=== PATIENT | male | born 2000 | race Caucasian/White ===

== ENCOUNTER 2022-03-26 10:59 | Emergency (ER) | payer OTHER, SELFPAY ==
[2022-03-26 11:07] VITALS: BP 129/75; PULSE 75; RESP 16; TEMP 37.4; O2SAT 99
--- NOTE | 2022-03-26 11:18 | ED.URI ---
HPI - URI/Sore Throat General Chief Complaint: Upper Respiratory Infection Stated Complaint: sore throat, congestion, chest tightness Time Seen by Provider: 03/26/22 11:20 Source: patient Mode of arrival: ambulatory Limitations: no limitations History of Present Illness HPI Narrative: Ran is a 21-year-old male patient presenting to clinic today with complaints of sore throat, nasal congestion, and chest tightness. He reports that his symptoms started approximately 5 days ago. He denies any fever or chills. MD elicited complaint: sore throat and nasal congestion Related Data Allergies Allergy/AdvReac Type Severity Reaction Status Date / Time No Known Allergies Allergy Unknown Unverified 04/09/17 18:15 Review of Systems Review of Systems: Pertinent positives per HPI. Patient denies any fever, chills, rash, headache, visual changes, dizziness, cough, shortness of breath, chest pain, palpitations, nausea, vomiting, diarrhea, constipation, abdominal pain, or any urinary issues. PMFSH Family History Family History Other Hypertension Social History Social History Smoking status: Never smoker Alcohol intake: never Comments At the time of my signature, I reviewed and agree with the nursing past medical, surgical, social, and family history. There is no relevant family history pertinent to the patient complaint. Exam Narrative: General: Well-developed, well nourished, in no apparent distress Head: Normocephalic, atraumatic Eyes: Pupils equally round and reactive to light bilaterally, EOM intact, sclera and conjunctive clear, no discharge, lids normal Ears: TMs intact and clear, ear canals clear, no drainage, grossly hearing normal. Nose: Nares patent, clear nasal discharge, no inflammation, no sinus tenderness. Mouth: Oral pharynx without lesions or masses, good dentition, MMM. Oropharynx red, tonsillar swelling Neck: Supple, trachea midline, no enlargement of anterior or posterior cervical nodes, no thyroid masses or goiter palpable. Cardio: Regular rate and rhythm, s1 and s2 normal, no murmur appreciated. Resp: Clear to auscultation bilaterally, no rhonchi, rales, wheezing or rubs Course Course Emergency Course: Portions of this record may have been created with voice recognition software. Level of Care: Express Care Visit Vital Signs Vital signs: Vital Signs Temperature 37.4 C 03/26/22 11:07 Pulse Rate 75 03/26/22 11:07 Respiratory Rate 16 03/26/22 11:07 Blood Pressure 129/75 03/26/22 11:07 Pulse Oximetry 99 03/26/22 11:07 Oxygen Delivery Room Air 03/26/22 11:07 Temperature 37.4 C 03/26/22 11:07 Pulse Rate 75 03/26/22 11:07 Respiratory Rate 16 03/26/22 11:07 Blood Pressure 129/75 03/26/22 11:07 Pulse Oximetry 99 03/26/22 11:07 Oxygen Delivery Room Air 03/26/22 11:07 Vital signs reviewed MDM - URI/Sore Throat MDM Narrative Medical decision making narrative: At the time of visit patient is resting comfortably on the exam table. Strep screen was obtained was negative in the clinic today. Patient has had symptoms for over 7 days so do not feel that it is necessary to do a flu or a COVID test at this time. Supportive measures were discussed with the patient he voiced understanding discharge instructions and agrees to treatment plan Differential Diagnosis Differential diagnosis: Likely upper respiratory infection, otitis media, sinusitis, viral infection, bronchitis, influenza and pharyngitis Lab Data Labs: Strep Screen Presumptive Negative *(Reference Range: Negative)* Discharge Plan Discharge Clinical Impression: Post-nasal drip Upper respiratory infection Qualifiers: URI type: unspecified URI Qualified Code(s): J06.9 - Acute upper respiratory infection, unspec
== END 2022-03-26 11:43 | disposition home or self-care (01) ==
PROVIDERS: Emergency Provider Nurse Practitioner Family
DX: R09.82 Postnasal drip (principal); J06.9 Acute upper respiratory infection, unspecified
CPT/HCPCS: 87081; 87880; 99203; G0463

== ENCOUNTER 2023-09-10 13:29 | Emergency (ER) | payer BC, SELFPAY ==
--- NOTE | ~2023-09-10 | XR_ITS ---
Left Shoulder Technique: AP and scapular Y views were obtained. Clinical History: Injury Findings: No fracture or dislocation is seen. Osseous alignment is anatomic. The glenohumeral and acr omioclavicular joint spaces are preserved. Soft tissues are unremarkable. Impression: Unremarkable left shoulder radiographs. Reviewed, dictated and finalized at [facility]. Impression: Unremarkable left shoulder radiographs.
--- NOTE | ~2023-09-10 | XR_ITS ---
EXAMINATION: XR shoulder RT min 2V DATE: 09/10/2023 14:00 INDICATION: Right shoulder injury. TECHNIQUE: 5 views of right shoulder were obtained. COMPARISON: Right shoulder radiographs 06/30/2013 FINDINGS: Bone alignment is normal. No fracture. Joint spaces are normal. IMPRESSION: 1. Normal right shoulder. Reviewed, dictated and finalized at location [facility]. IMPRESSION: 1. Normal right shoulder.
[2023-09-10 13:47] VITALS: BP 141/71; PULSE 59; RESP 16; TEMP 36.3; O2SAT 100
--- NOTE | 2023-09-10 14:02 | ED.UPPEXIN ---
HPI - Extremity Injury (Upper) General Chief Complaint: Extremity Injury, Upper Stated Complaint: Left shoulder pain Time Seen by Provider: 09/10/23 14:02 Source: patient and RN notes reviewed Mode of arrival: ambulatory Limitations: no limitations History of Present Illness HPI narrative: 23-year-old male presents with concern for bilateral shoulder pain and ongoing dislocation. He reports for several years his shoulders have easily popped out of socket when doing certain movements in everyday life, yet he is able to lift weights at the gym without problem. He reports his only certain motions that causes dislocation. Reports over the last several weeks the left shoulder has been more susceptible to dislocating and has dislocated many times. He denies pain but reports some tingling in his left fingers. MD complaint: injury to: left, right and shoulder Related Data Home Medications Medication Instructions Recorded Confirmed No Home Medications 09/10/23 09/10/23 Allergies Allergy/AdvReac Type Severity Reaction Status Date / Time No Known Allergies Allergy Unknown Verified 09/10/23 13:37 Review of Systems Review of Systems: CONSTITUTIONAL: Denies malaise, chills, sweats, or fever. SKIN: Denies rash or itching, open skin, laceration, abrasion, redness, warmth, swelling. MUSCULOSKELETAL: Reports bilateral shoulder dislocations NEUROLOGIC: Denies numbness, weakness All systems reviewed & are unremarkable except as noted in HPI and below PMFSH Family History Family History Other Hypertension Social History Social History Smoking status: Never smoker Alcohol intake: never Comments At time of signature, agree with nursing past medical, surgical, social and family history. There is no relevant family history pertinent to the presenting complaint Exam Narrative: GENERAL: Well-appearing, well-nourished, and in no acute distress. HEAD: Normocephalic, atraumatic. EYES: PERRLA, conjunctivae clear NECK: Supple. CHEST: Speaks in full sentences. No respiratory distress. HEART: Regular rate and rhythm. Normal and equal peripheral pulses. EXTREMITIES: Bilateral upper extremities have gross normal strength and sensation, gross normal range of motion. No edema or ecchymosis. Normal sensation with sensitivity to light touch and pain. No point tenderness. No open wounds, no skin tenting, no devitalized tissue or atrophy, no trophic changes, no obvious deformity, alignment normal, nearby joints and structures intact. Distal pulses palpable and equal bilaterally, skin warm, dry, pink. Capillary refill less than 3 seconds. SKIN: Warm, dry, no rash. NEURO: Alert and oriented x3. PSYCH: Normal mood and affect Course Course Emergency Course: Patient is aware of diagnosis, understands and agrees to treatment plan. Anticipatory guidance given. Patient agrees to follow-up as directed and is aware of reasons to seek care at the emergency department. Portions of this record may have been created with voice recognition software Level of Care: Express Care Visit Vital Signs Vital signs: Vital Signs Temperature 97.4 F L 09/10/23 13:47 Pulse Rate 59 L 09/10/23 13:47 Respiratory Rate 16 09/10/23 13:47 Blood Pressure 141/71 H 09/10/23 13:47 Pulse Oximetry 100 09/10/23 13:47 Oxygen Delivery Room Air 09/10/23 13:47 Temperature 97.4 F L 09/10/23 13:47 Pulse Rate 59 L 09/10/23 13:47 Respiratory Rate 16 09/10/23 13:47 Blood Pressure 141/71 H 09/10/23 13:47 Pulse Oximetry 100 09/10/23 13:47 Oxygen Delivery Room Air 09/10/23 13:47 Reviewed. MDM - Extremity Injury (Upper) MDM Narrative Medical decision making narrative: Patients symptoms are consistent with musculoskeletal etiology. No signs of neurological or vascular compromise on exam. Compartments and tissues ar
== END 2023-09-10 14:21 | disposition home or self-care (01) ==
PROVIDERS: Emergency Provider Nurse Practitioner
DX: S49.92XA Unspecified injury of left shoulder and upper arm, initial encounter (principal); S49.91XA Unspecified injury of right shoulder and upper arm, initial encounter; X58.XXXA Exposure to other specified factors, initial encounter; Z86.16 Personal history of COVID-19
CPT/HCPCS: 73030; 99214; G0463

== ENCOUNTER 2023-11-14 15:35 | Outpatient (CLI) | payer BC, SELFPAY ==
--- NOTE | ~2023-11-14 | MR_ITS ---
EXAMINATION: MR shoulder RT wo con DATE: 11/14/2023 16:45 INDICATION: Superior glenoid labrum lesion of right shoulder. Right shoulder pain. TECHNIQUE: Magnetic resonance imaging (MRI) of the right shoulder was performed without intravenous c ontrast. Sequences included axial PD-weighted FS FSE, coronal oblique PD-weighted FS FSE and T2-weigh marcio FS FSE, and sagittal oblique T2-weighted FS FSE and T1-weighted FSE. COMPARISON: Right shoulder radiographs 09/10/2023 FINDINGS: Coracoacromial arch: The acromion undersurface is flat in morphology (type I). There is osteolysis of the distal clavicle with subchondral edema-like marrow signal intensity. There is hypertrophy of the acromioclavicular rosana int capsule. There is physiologic fluid in the subacromial/subdeltoid bursa. Rotator cuff: There is mild supraspinatus and infraspinous tendinopathy. Teres minor tendon is normal. Subscapulari s tendon is normal. The rotator cuff muscle bellies are normal. Biceps tendon and glenoid labrum: Biceps tendon is in bicipital groove. Intra-articular biceps tendon is normal. There is a tear of the base of the labrum at 9:00 with 2 mm paralabral cyst. Fluid: There is no glenohumeral joint effusion. Bones/cartilage: There is cartilage surface irregularity of glenoid. Humeral head cartilage is normal. IMPRESSION: 1. Mild glenoid chondrosis. 2. Posterior labral tear. 3. 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 Reviewed, dictated and finalized at location [facility]. IMPRESSION: 1. Mild glenoid chondrosis. 2. Posterior labral tear. 3. Osteolysis of the distal clavicle, which may be seen with repetitive microtr auma.
== END 2023-11-14 15:36 | disposition home or self-care (01) ==
LOC: ANHIMG 15:45
PROVIDERS: Visit Provider Orthopaedic Surgery
DX: S43.431D Superior glenoid labrum lesion of right shoulder, subsequent encounter (principal); X58.XXXD Exposure to other specified factors, subsequent encounter
CPT/HCPCS: 73221